=== PATIENT | male | born 1980 | race Caucasian/White ===

== ENCOUNTER 2019-03-26 12:36 | Emergency (ER) | payer MEDICAID ==
[~2019-03-26] VITALS: Ht 182.9 cm; Wt 103.0 kg
[2019-03-26] MEDS ORDERED: LIDOcaine 1% W/epiNEPHrine 1:200,000 10ml vial IJ ONE (13:45)
[2019-03-26] MEDS ORDERED: LIDOcaine 1% w/EPI 1:200,000 injection 10mL vial IM ONE (13:45)
[2019-03-26] MEDS ORDERED: clindamycin phosphate 150mg/ml inj. IM ONE (13:45)
[2019-03-26] MEDS ORDERED: CEPH500C5 PO (14:27)
[2019-03-26] MEDS ORDERED: SULF1TAB49 PO (14:27)
[2019-03-26 14:51] VITALS: BP 102/80
== END 2019-03-26 14:57 | disposition home or self-care (01) ==
LOC: ER 12:37
DX: L02.416 Cutaneous abscess of left lower limb (principal); F15.90 Other stimulant use, unspecified, uncomplicated; Z79.899 Other long term (current) drug therapy
CPT/HCPCS: 10060; 96372; 99283; J3490

== ENCOUNTER 2019-06-20 15:10 | Emergency (ER) | payer MEDICAID ==
[~2019-06-20] VITALS: Ht 182.9 cm; Wt 99.7 kg
[2019-06-20 15:25] VITALS: BP 124/75
[2019-06-20] MEDS ORDERED: SULF1TAB49 PO (19:56)
[2019-06-20] MEDS ORDERED: MUPI22OI30 TOP (19:56)
== END 2019-06-20 20:13 | disposition home or self-care (01) ==
LOC: ER 15:10
DX: J34.0 Abscess, furuncle and carbuncle of nose (principal); F17.200 Nicotine dependence, unspecified, uncomplicated; F15.90 Other stimulant use, unspecified, uncomplicated; Z79.899 Other long term (current) drug therapy
CPT/HCPCS: 99283

== ENCOUNTER 2021-04-23 13:08 | Emergency (ER) | payer MEDICAID ==
[~2021-04-23] VITALS: Ht 177.8 cm; Wt 100.0 kg
[2021-04-23 13:16] VITALS: BP 128/85
[2021-04-23] MEDS ORDERED: DOXY100T56 PO (13:23)
== END 2021-04-23 13:26 | disposition home or self-care (01) ==
LOC: ER 13:08
DX: L03.317 Cellulitis of buttock (principal); L02.31 Cutaneous abscess of buttock; F15.90 Other stimulant use, unspecified, uncomplicated; Z79.2 Long term (current) use of antibiotics
CPT/HCPCS: 99283

== ENCOUNTER 2022-03-21 10:43 | Emergency (ER) | payer MEDICAID ==
[~2022-03-21] VITALS: Ht 170.2 cm; Wt 95.5 kg
[2022-03-21 10:49] VITALS: BP 118/77
== END 2022-03-21 11:40 | disposition home or self-care (01) ==
LOC: ER 10:44
DX: K59.00 Constipation, unspecified (principal); F15.10 Other stimulant abuse, uncomplicated
CPT/HCPCS: 74018; 99283

== ENCOUNTER 2022-10-25 01:59 | Emergency (ER) | payer MEDICAID | END 2022-10-25 03:59 | disposition left against medical advice (07) | LOC: ER 02:00 | DX: R10.9 Unspecified abdominal pain (principal); Z53.21 Procedure and treatment not carried out due to patient leaving prior to being seen by health care provider ==

== ENCOUNTER 2024-10-24 21:24 | Emergency (ER) | payer MEDICAID ==
[~2024-10-24] VITALS: Ht 180.3 cm; Wt 110.1 kg
--- NOTE | 2024-10-24 21:59 | Physician Documentation ---
History of Present Illness ~ Chief Complaint: Leg Pain Stated Complaint: R LEG PAIN Time Seen by MD: 22:05 OK to notify your PCP?: Yes Source: patient Mode of Arrival: POV Exam Limitations: no limitations HPI 43-year-old male presents with right lower extremity edema, warmth and pain for the past 2 weeks, progressively worse. He was recently released from detention and while he was in detention was treated for his cellulitis and open sores an unknown antibiotic that he took twice a day and finish the course. it was starting to look better and then he was released and now it started looking worse. Also reports that his right big toenail fell off as well. Tetanus witin 5 years: No Medication Reconciliation Allergies: Coded Allergies: No Known Allergies (Unverified , 03/26/19) Scheduled Cephalexin*Monohydrate* (Keflex*), 1 CAP PO Q6H Past Medical History Past Medical History: No Pertinent History Past Surgical History: noncontributory Other Past Family History: negative Alcohol Use: None Drug Use: methamphetamine Review of Systems All Other Systems at this time: Reviewed and Negative Physical Exam Vital Signs: RN Vital Signs have been reviewed: Yes, Temperature: 98.1, Source: Temporal, Heart Rate: 90, Respiratory Rate: 16, BP: 122/69, Pulse Oximetry: 99, Weight: 110.100 Pulse Oximetry Reflects: adequate oxygenation Physical Exam General: Alert, no distress. HEENT: No injection, moist mucous membranes. Neck: Full range of motion. Respiratory: No respiratory distress, equal chest rise and fall. Chest: No accessory muscle use. Cardiovascular: Regular rate and rhythm. Gastrointestinal: Nondistended. Extremities: Bilateral 1+ lower leg edema worse on the right side. Warmth and erythema to the right lower extremity with sores. Right greater toe is missing half of the nail. No signs of infection seen in right toe. Pulses bilaterally 2+. Good CSM and sensation in right foot. Neurologic: Oriented x4. Psychiatric: Normal mood and affect. Skin: Normal color, warm and dry. Progress Results/Orders Results/Orders Completed Orders - GRACIE SOLORZANO [employer] Cephalexin Capsule (Keflex Capsule) (10/24/24 23:15) Naproxen Tablet (Naprosyn Tablet) (10/24/24 23:15) Medications Received in ER Medications (Trade) Dose Ordered Sig/Jose Maria Route PRN Reason Start Time Stop Time Status Last Admin Dose Admin (Keflex capsule) 500 mg ONCE ONCE PO 10/24/24 23:15 10/24/24 23:16 DC 10/24/24 23:28 500 MG (Naprosyn tablet) 500 mg ONCE ONCE PO 10/24/24 23:15 10/24/24 23:16 DC 10/24/24 23:28 500 MG Vital Signs 10/24/24 21:35 Temp 98.1 Pulse 90 Resp 16 B/P (MAP) 122/69 Pulse Ox 99 Medical Decision Making Additional info obtained from: old records Findings 43-year-old male presents with bilateral lower extremity edema which is worse on the right side with some small abrasions found to his right schwartz. He reports he was treated for cellulitis while in the detention received an antibiotic unknown name that he took twice daily and finish the course. He does not remember how many days he took it. He reports it soon as he was discharged the wound came back and looks worse. I consulted with Dr. Jones who also examined this patient regarding oral outpatient antibiotics versus admission. He suggested trying outpatient therapy so I ordered some naproxen for pain and Keflex 4 times daily for 10 days. I instructed the patient to return back here for any new or worsening symptoms as he may need a 2nd antibiotic or admission for IV antibiotics if it is gets worse. He should follow up with his primary care or [facility] in the next 3 days to monitor the wound and return back here for any new or worsening symptoms. Can use Tylenol and/or ibuprofen/naproxen for pain relief at home and to keep legs elevated to help with the edema General Diff Dx:Considerations: Include: Fracture, Hematoma, Neurovascular injury, Sprain, Ulcer Departure Disposition: HOME / SELF CARE / HOMELESS Impression: Primary Impression: Cellulitis Condition: Stable Discharge Instructions: Cellulitis, Adult, [id number] Additional Instructions: Take all antibiotics as prescribed. Follow up with her primary care provider or [facility] in the next 3 days to make sure that this infection is improving. If it is not improving you may need a 2nd antibiotic or admission for IV antibiotics. You can use Tylenol and/or ibuprofen for pain relief. Return here for any new or worsening symptoms. Referrals: NO PRIMARY CARE PROVIDER (PCP) Prescriptions Cephalexin*Monohydrate* (Keflex*) 500 Mg Capsule 1 CAP PO Q6H for 10 Days, #40 CAP Prov: GRACIE SOLORZANO 10/24/24 Education Educated: Patient Educated regarding: diagnosis, treatment, prognosis, need for follow up Additional Comment Medical Screen Exam This patient recieved a medical screening examination. After reviewing the individual's medical complaints with presenting symptoms and performing an appropriate physical examination, it was determined that no immediate life- threatening emergency medical condition is present. This individual is also not a women having contractions. Signature Scribe Signature: . Attestation: Scribed for Gracie Solorzano by Gracie Scanlon NP . 10/24/24 23:27 GRACIE SOLORZANO Oct 24, 2024 21:59
[2024-10-24] MEDS ORDERED: CEPH-585 PO (23:11)
[2024-10-24] MEDS: cephalexin 250mg capsule PO ONE (23:28)
[2024-10-24] MEDS: naproxen 500mg tablet PO ONE (23:28)
[2024-10-24 23:45] VITALS: BP 120/68; PULSE 89; RESP 16; TEMP 98.6; O2SAT 99
== END 2024-10-24 23:45 | disposition home or self-care (01) ==
LOC: ER 21:25
DX: L03.115 Cellulitis of right lower limb (principal); F15.90 Other stimulant use, unspecified, uncomplicated
CPT/HCPCS: 99283

== ENCOUNTER 2025-01-25 23:29 | Emergency (ER) | payer MEDICAID ==
[~2025-01-25] VITALS: Ht 182.9 cm; Wt 109.1 kg
[2025-01-25 23:44] VITALS: BP 109/65; PULSE 70; O2SAT 99
[2025-01-25 23:54] VITALS: TEMP 97
--- NOTE | 2025-01-25 23:57 | Physician Documentation ---
History of Present Illness ~ Chief Complaint: Abdominal Pain Stated Complaint: STOMACH PAINS HPI This is a 44-year-old male who presents with three days of constipation and generalized abdominal pain, patient reports that he had a bowel movement while waiting in the emergency department lobby and all pain has resolved and no longer wishes to be seen. Medication Reconciliation Allergies: Coded Allergies: No Known Allergies (Unverified , 03/26/19) Scheduled Docusate Sodium (Colace), 1 CAP PO Q12H Past Medical History Past Medical History: No Pertinent History Past Surgical History: noncontributory Other Past Family History: negative Alcohol Use: None Drug Use: methamphetamine Review of Systems ROS As stated above in the HPI, otherwise all systems are reviewed and negative. Physical Exam Vital Signs: Temperature: 97.0, Source: Oral, Heart Rate: 70, BP: 109/65, Pulse Oximetry: 99, Weight: 109.090 Physical Exam VITALS: Reviewed and as above. GENERAL: Alert, nontoxic appearing, no apparent distress. RESPIRATORY: No increased work of breathing, no respiratory distress, speaking in full clear sentences Progress Results/Orders Results/Orders Vital Signs 01/25/25 01/25/25 23:44 23:54 Temp 97.0 97.0 Pulse 70 B/P (MAP) 109/65 Pulse Ox 99 Medical Decision Making Findings This 44-year-old male presented to the emergency department due to concern for constipation and generalized abdominal pain however in triage he reported that he had a bowel movement while waiting in the emergency department lobby and no longer has symptoms and no longer wishes to be seen, patient is otherwise well- appearing and appropriate for outpatient follow up. Diff Dx Pain:Considerations: Include: Appendicitis, Bowel obstruction, Cholangitis, Cholecystitis, Cholelithasis, Constipation, Diverticular disease, Gastritis, Gastroenteritis, Inflammatory BD, Ischemic bowel, Mass, Testicular torsion, Trauma, intraabdominal, Urinary obstruction, Urinary tract infection Departure Time of Disposition: 23:55 Disposition: 01 HOME / SELF CARE / HOMELESS Impression: Primary Impression: Abdominal pain Qualified Codes: R10.9 - Unspecified abdominal pain Additional Impression: Constipation Qualified Codes: K59.00 - Constipation, unspecified Condition: Improved Discharge Instructions: Constipation, Adult Additional Instructions: Stay well hydrated, consider adding a fiber supplement to your diet. Please follow up with your primary care provider in the next few days. Please return to the emergency department for any new or worsening concerning symptoms. Referrals: NO PRIMARY CARE PROVIDER (PCP) Prescriptions Docusate Sodium (Colace) 100 Mg Capsule 1 CAP PO Q12H for 30 Days, #60 CAP 0 Refills Prov: MARCIANO HARDWICK 01/25/25 Education Educated: Patient Educated regarding: diagnosis, treatment, prognosis, need for follow up Signature Scribe Signature: No Scribe Attestation: The note accurately reflects work and decisions made by me.MARCIANO Jacobson 01/26/25 13:53 MARCIANO HARDWICK Jan 25, 2025 23:57
[2025-01-25] MEDS ORDERED: DOCU-148 PO (23:58)
== END 2025-01-26 00:04 | disposition home or self-care (01) ==
LOC: ER 23:29
DX: K59.00 Constipation, unspecified (principal); R10.84 Generalized abdominal pain; F15.90 Other stimulant use, unspecified, uncomplicated; Z79.899 Other long term (current) drug therapy
CPT/HCPCS: 99282